=== PATIENT | female | born 1970 ===

== ENCOUNTER 2019-08-17 05:45 | Day surgery (SDC) | payer OTHER ==
[~2019-08-17 05:45] MED LIST: BACTERIOSTATIC SODIUM CHLORIDE 0.9% 30 ML VIAL INFILTRATI ONE; LACTATED RINGERS 1,000 ML ONE; ceFAZolin/Water 2 GM/20 ML 2 GM/20 ML SYRINGE IV NR
--- NOTE | 2019-08-17 06:59 | Anesthesia Consultation ---
Anesthesia Consult and Med Hx Date of service: 08/17/19 - Airway Anesthetic Teeth Evaluation: Good (Missing teeth otherwise solid) ROM Head & Neck: Adequate (Limited posterior movement causes pain, nothing runs down arms) Mental/Hyoid Distance: Adequate Mallampati Class: Class II Intubation Access Assessment: Good - Pulmonary Exam CTA: Yes - Cardiac Exam Cardiac Exam: RRR - Pre-Operative Health Status ASA Pre-Surgery Classification: ASA2 Proposed Anesthetic Plan: General - Pulmonary Hx Smoking: Yes (03/31-03/29 PPD) Hx Sleep Apnea: No (GALLO PRE SCREEN LOW RISK.) - Cardiovascular System Hx Hypertension: Yes (X 1 YR) - Central Nervous System Hx Back Pain: Yes (NECK PAIN WITH PAIN MICHAEL SHOULDERS AND ARMS) - Other Systems Hx Cancer: No
--- NOTE | 2019-08-17 06:59 | Anesthesia Day of Surgery ---
Anesthesia Day of Surgery - Day of Surgery Patient Examined: Yes Patient H&P Reviewed: Yes Patient is NPO: Yes
[2019-08-17] MEDS ORDERED: LACTATED RINGERS 1,000 ML IV SCH (07:00)
[2019-08-17 07:09] LABS: Hematocrit 37.2 % (30.3-42.9); Mean Corpuscular HGB Conc 35 % (30-34); Mean Corpuscular Volume 93 fl (79-97); Platelet Count 238 K/mm3 (140-440); Red Blood Count 4.02 M/mm3 (3.65-5.03); Red Cell Distribution Width 14.1 % (13.2-15.2)
[2019-08-17] MEDS: MIDAZOLAM 2 MG/2 ML INJ IV NR ×2 (07:15→07:45)
[2019-08-17] MEDS ORDERED: BUPIVACAINE/PF (0.5%) 5 MG/1 ML 30 ML VIAL INFILTRATI ONE (07:20)
[2019-08-17] MEDS ORDERED: SODIUM CHLORIDE P/F VIAL 10 ML 10 ML ONE (07:20)
[2019-08-17] MEDS ORDERED: BACITRACIN 50,000 UNIT VIAL ONE (07:21)
[2019-08-17] MEDS ORDERED: THROMBIN (RECOMBINANT) 5,000 UNIT VIAL TP ONE ×2 (07:21→10:02)
[2019-08-17] MEDS ORDERED: LIDOCAINE 1%/EPINEPHRINE 1:100,000 VIAL (20 ML) INFILTRATI ONE ×2 (07:21→10:02)
[2019-08-17] MEDS ORDERED: SODIUM CHLORIDE 0.9% 250ML 250 ML ONE (07:21)
[2019-08-17] MEDS ORDERED: GELATIN SPONGE SIZE 100 TP ONE (07:21)
[2019-08-17] MEDS ORDERED: MINERAL OIL Light (Sterile) 10 ML VIAL TP ONE (07:23)
[2019-08-17] MEDS ORDERED: propofoL 200 MG/20 ML VIAL IV ONE (07:47)
[2019-08-17] MEDS ORDERED: GLYCOPYRROLATE 0.4 MG/2 ML INJ ONE (07:47)
[2019-08-17] MEDS ORDERED: SUCCINYLCHOLINE CHLORIDE 200 MG/10 ML INJ MDV ONE (07:47)
[2019-08-17] MEDS ORDERED: fentaNYL 250 MCG/5 ML INJ ONE (07:47)
[2019-08-17] MEDS ORDERED: PHENYLEPHRINE/NS 1,000 MCG/10 ML SYRINGE (OR USE) IV ONE (07:47)
[2019-08-17] MEDS ORDERED: ONDANSETRON 4 MG/2 ML INJ ONE (07:47)
[2019-08-17] MEDS ORDERED: LIDOCAINE MPF (2%) 20 MG/1 ML VIAL 5 ML ONE (07:47)
[2019-08-17] MEDS ORDERED: KETAMINE/STERILE WATER 50 MG/ML SYRINGE ONE (07:47)
[2019-08-17 07:53] LABS: BUN/Creatinine Ratio 17; Blood Urea Nitrogen 10 mg/dL (7-17); Calcium 8.6 mg/dL (8.4-10.2); Hemolysis Index 9
[2019-08-17] MEDS ORDERED: fentaNYL 100 MCG/2 ML INJ ONE ×3 (08:32→08:47)
[2019-08-17] MEDS ORDERED: BACITRACIN 50,000 UNIT VIAL IR ONE (10:01)
[2019-08-17] MEDS ORDERED: SODIUM CHLORIDE 0.9% IRR 1,500 ML BOTTLE IR ONE (10:04)
[2019-08-17] MEDS ORDERED: HYDROmorphone 1 MG/1 ML INJ ONE ×2 (10:49→11:16)
--- NOTE | 2019-08-17 11:24 | XRay Report ---
CERVICAL SPINE 2 VIEWS INDICATION: C3/4; C4/5 DEISCETOMY. COMPARISON: None. IMPRESSION: 0.2 minutes of fluoroscopy time was provided by radiology. 2 fluoroscopic images of the cervical spine are presented during surgery. The images demonstrate ACDF changes at C3-4 and C4-5. Alignment is anatomic. No acute osseous injury is noted. An endotracheal tube is in place. Please cor relate with the procedural report as needed. Signer Name: Shakeel Camacho Jr, MD Signed: 08/17/2019 11:20 AM Workstation Name: [id number]
--- NOTE | 2019-08-17 12:35 | Post Anesthesia Evaluation ---
- Post Anesthesia Evaluation Patient Participated: Yes Airway Patent: Yes Stable Respiratory Function: Yes Nausea/Vomiting: No Temp > 96.8F: Yes Pain Manageable: Yes Adequeate Hydration: Yes Anesthesia Complications: No Other Comments: Moves all extremities well
[2019-08-17] MEDS ORDERED: ONDANSETRON 4 MG/2 ML INJ IV PRN (12:38)
[2019-08-17] MEDS: HYDROmorphone 1 MG/1 ML INJ IV PRN ×2 (12:40→14:00)
[2019-08-17] MEDS ORDERED: oxyCODONE /ACETAMINOPHEN 5-325MG TAB PO PRN (13:24)
[2019-08-17] MEDS ORDERED: oxyCODONE /ACETAMINOPHEN 5-325MG TAB ONE (14:03)
[2019-08-17 15:11] VITALS: BP 121/87
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
== END 2019-08-17 05:46 | disposition home or self-care (01) ==
LOC: OR 05:45
PROVIDERS: ATTEND Neurological Surgery
DX: M54.12 Radiculopathy, cervical region (principal); M50.221 Other cervical disc displacement at C4-C5 level; E78.00 Pure hypercholesterolemia, unspecified; I10 Essential (primary) hypertension; F17.210 Nicotine dependence, cigarettes, uncomplicated; Z79.899 Other long term (current) drug therapy; Z87.442 Personal history of urinary calculi; Z88.8 Allergy status to other drugs, medicaments and biological substances; Z98.890 Other specified postprocedural states; V87.7XXD Person injured in collision between other specified motor vehicles (traffic), subsequent encounter
CPT/HCPCS: 36415; 72040; 80048; 81025; 85027; 86850; 86900; 86901; 86920; A4649; C1713; J0330; J0690; J1170; J2250; J2370; J2405; J2704; J3010; J7050; J7120